=== PATIENT | female | born 1935 | race Caucasian/White ===

== ENCOUNTER 2017-10-18 13:41 | Emergency (ER) | payer MEDICARE, BC ==
[2017-10-18] MEDS ORDERED: ALBUTEROL NEB SOL 2.5MG/3ML 1 VIAL SOL NEB ONE (13:51)
[2017-10-18] MEDS ORDERED: ALBUTEROL NEB SOL 2.5MG/3ML 1 VIAL SOL ONE (13:51)
[2017-10-18 14:12] LABS: CALCIUM 9.8 mg/dl (8.5-10.1)
[2017-10-18] MEDS ORDERED: LEVOFLOXACIN 500 MG TAB PO ONE ×2 (14:20→14:25)
[2017-10-18 14:24] VITALS: TEMP 100.4
[2017-10-18] MEDS ORDERED: LEVOFLOXACIN 500 MG TAB ONE ×2 (14:28)
[2017-10-18 14:39] VITALS: RESP 18
[2017-10-18 15:36] VITALS: O2SAT 96
[2017-10-18 15:37] VITALS: BP 171/70; PULSE 114
== END 2017-10-18 15:10 | DRG 195 ==
LOC: ED 13:41
DX: J18.1 Lobar pneumonia, unspecified organism (principal)
CPT/HCPCS: 36415; 71045; 80048; 87040; 87205; 93005; 99283; 99284; J7603; A9270-GY

== ENCOUNTER 2018-05-23 11:36 | Inpatient (IN) | payer BC, OTHER ==
[2018-05-23] MEDS ORDERED: ALBUTEROL/IPRATROPIUM 1 VIAL SOL INH ONE (11:51)
[2018-05-23] MEDS ORDERED: MECLIZINE HYDROCHLORIDE 12.5 MG TAB PO ONE (11:51)
[2018-05-23] MEDS ORDERED: MECLIZINE HYDROCHLORIDE 12.5 MG TAB ONE (12:15)
[2018-05-23] MEDS ORDERED: ALBUTEROL/IPRATROPIUM 1 VIAL SOL ONE (12:16)
[2018-05-23 12:28] LABS: CARBON DIOXIDE 25.8 mEq/L (21-32); CREATININE 1.39 mg/dl (0.60-1.00); POTASSIUM 3.6 mMol/L (3.5-5.1)
[2018-05-23] MEDS ORDERED: SODIUM CHLORIDE 0.9% 1000 ML SOL IV SCH ×2 (12:30→14:15)
[2018-05-23 12:35] LABS: HEMATOCRIT 42 % (35-47); HEMOGLOBIN 13.5 gm/dl (12.0-15.5); MEAN CORPUSCULAR HEMOGLOBIN 29.6 pg (27.0-32.0); MEAN CORPUSCULAR HGB CONC 31.9 gm/dl (32.0-36.0); MEAN CORPUSCULAR VOLUME 93 fL (81-99)
[2018-05-23 12:51] LABS: BAND NEUTROPHILS % (MANUAL) 16 %; BASOPHILS % (MANUAL) 0 % (0-3); EOSINOPHILS % (MANUAL) 0 % (0-9); LYMPHOCYTES % (MANUAL) 16 % (10-50); MONOCYTES % (MANUAL) 9 % (0-12); NEUTROPHILS % (MANUAL) 59 % (37-80)
[2018-05-23 12:52] LABS: NORMAL RBCS PRESENT
[2018-05-23] MEDS ORDERED: ALBUTEROL NEB SOL 2.5MG/3ML 1 VIAL SOL NEB PRN (13:58)
[2018-05-23] MEDS ORDERED: CEFTRIAXONE 1 GM (PREMIX) 1 GM/50 ML SOL IV SCH (14:00)
[2018-05-23] MEDS ORDERED: ALUMINUM/MAGNESIUM 30 ML SUS PO PRN (14:03)
[2018-05-23] MEDS ORDERED: MENTHOL PO SCH (14:15)
[2018-05-23] MEDS ORDERED: BENZOCAINE PO SCH (14:15)
[2018-05-23] MEDS: ALBUTEROL/IPRATROPIUM 1 VIAL SOL INH SCH ×2 (14:43→20:11)
[2018-05-23] MEDS ORDERED: CEFTRIAXONE 1 GM PDS ONE (14:49)
[2018-05-23] MEDS: ACETAMINOPHEN 500 MG 500 MG TAB PO PRN (15:05)
[2018-05-23] MEDS ORDERED: BENZOCAINE PO PRN (15:13)
[2018-05-23] MEDS ORDERED: MENTHOL PO PRN (15:13)
[2018-05-23] MEDS ORDERED: AZITHROMYCIN 500 MG PDS IV ONE (15:27)
[2018-05-23] MEDS ORDERED: SODIUM CHLORIDE 0.9% 250 ML 250 ML IV ONE (15:27)
[2018-05-23] MEDS: ENOXAPARIN 40 MG SOL SC SCH (15:35)
[2018-05-23] MEDS: AZITHROMYCIN 500 MG PDS 500 MG in SODIUM CHLORIDE 0.9% 250 ML 250 ML IV SCH (15:35)
[2018-05-23] MEDS: PEG-400/PROPYLENE GLYCOL 1 DROP SOL EACHEYE SCH ×2 (16:50→20:11)
[2018-05-23] MEDS: ACETAMINOPHEN 325 MG PO SCH (20:09)
[2018-05-23] MEDS: ASCORBIC ACID/COPPER/VITAMIN SGL PO SCH (20:10)
[2018-05-23] MEDS: CHOLECALCIFEROL 1,000 IU TAB PO SCH (20:11)
[2018-05-23] MEDS ORDERED: FUROSEMIDE 40 MG SOL IV ONE (20:24)
[2018-05-23] MEDS ORDERED: NUTRITIONAL SUPPLEMENT PO SCH (21:00)
[2018-05-24] MEDS: ALBUTEROL/IPRATROPIUM 1 VIAL SOL INH SCH ×5 (01:16→23:49)
[2018-05-24] MEDS: ACETAMINOPHEN 500 MG 500 MG TAB PO PRN (01:20)
[2018-05-24 07:20] LABS: HEMATOCRIT 41 % (35-47); HEMOGLOBIN 13.5 gm/dl (12.0-15.5); MEAN CORPUSCULAR HEMOGLOBIN 30.5 pg (27.0-32.0); MEAN CORPUSCULAR HGB CONC 33.1 gm/dl (32.0-36.0); MEAN CORPUSCULAR VOLUME 92 fL (81-99)
[2018-05-24 07:29] LABS: CALCIUM 9.6 mg/dl (8.5-10.1); CARBON DIOXIDE 25.6 mEq/L (21-32); CREATININE 1.06 mg/dl (0.60-1.00); POTASSIUM 3.6 mMol/L (3.5-5.1)
[2018-05-24 08:06] LABS: BAND NEUTROPHILS % (MANUAL) 5 %; LYMPHOCYTES % (MANUAL) 13 % (10-50); NEUTROPHILS % (MANUAL) 78 % (37-80)
[2018-05-24 08:07] LABS: BASOPHILS % (MANUAL) 1 % (0-3); EOSINOPHILS % (MANUAL) 0 % (0-9); MONOCYTES % (MANUAL) 3 % (0-12); NORMAL RBCS NORMAL RBCS
[2018-05-24] MEDS ORDERED: LISINOPRIL 5 MG TAB PO SCH (09:00)
[2018-05-24] MEDS ORDERED: FUROSEMIDE 20 MG TAB PO SCH (09:00)
[2018-05-24] MEDS: ASCORBIC ACID/COPPER/VITAMIN SGL PO SCH (09:13)
[2018-05-24] MEDS: CHOLECALCIFEROL 1,000 IU TAB PO SCH (09:13)
[2018-05-24] MEDS: PEG-400/PROPYLENE GLYCOL 1 DROP SOL EACHEYE SCH ×4 (09:13→20:50)
[2018-05-24] MEDS: ENOXAPARIN 40 MG SOL SC SCH (09:13)
[2018-05-24] MEDS: ACETAMINOPHEN 325 MG PO SCH ×3 (09:13→20:50)
[2018-05-24] MEDS: AZITHROMYCIN 250 MG TAB PO SCH (14:41)
[2018-05-24] MEDS: AZITHROMYCIN 500 MG PDS 500 MG in SODIUM CHLORIDE 0.9% 250 ML 250 ML IV SCH (23:26)
[2018-05-24] MEDS ORDERED: FUROSEMIDE 40 MG SOL IV ONE (23:37)
[2018-05-25] MEDS ORDERED: SOLUMEDROL 125 MG/2 ML 125 MG/2 ML PDS IV ONE (01:22)
[2018-05-25] MEDS: ALBUTEROL/IPRATROPIUM 1 VIAL SOL INH SCH ×2 (01:54→11:18)
[2018-05-25] MEDS ORDERED: DILTIAZEM 5 MG/ML SOL IV ONE ×4 (06:33→07:34)
[2018-05-25] MEDS ORDERED: DILTIAZEM 5 MG/ML 125 MG in SODIUM CHLORIDE 0.9% 100 ML 100 ML IV SCH (07:15)
[2018-05-25 07:41] LABS: CALCIUM 10.1 mg/dl (8.5-10.1); CREATININE 1.15 mg/dl (0.60-1.00); POTASSIUM 3.8 mMol/L (3.5-5.1)
[2018-05-25 07:45] LABS: CARBON DIOXIDE 25.9 mEq/L (21-32)
[2018-05-25] MEDS ORDERED: PREDNISONE 20 MG TAB PO SCH (09:00)
[2018-05-25] MEDS: ENOXAPARIN 40 MG SOL SC SCH (09:48)
[2018-05-25] MEDS: PEG-400/PROPYLENE GLYCOL 1 DROP SOL EACHEYE SCH ×4 (10:15→21:26)
[2018-05-25] MEDS: ACETAMINOPHEN 325 MG PO SCH ×3 (10:16→21:25)
[2018-05-25] MEDS: AZITHROMYCIN 250 MG TAB PO SCH (15:42)
[2018-05-25] MEDS: ACETAMINOPHEN 500 MG 500 MG TAB PO PRN (17:09)
[2018-05-26] MEDS: ACETAMINOPHEN 500 MG 500 MG TAB PO PRN (04:10)
[2018-05-26 07:14] LABS: CALCIUM 10.3 mg/dl (8.5-10.1); CREATININE 1.06 mg/dl (0.60-1.00)
[2018-05-26 07:20] LABS: CARBON DIOXIDE 29.8 mEq/L (21-32); POTASSIUM 4.9 mMol/L (3.5-5.1)
[2018-05-26] MEDS: PEG-400/PROPYLENE GLYCOL 1 DROP SOL EACHEYE SCH ×4 (08:58→20:59)
[2018-05-26] MEDS: ACETAMINOPHEN 325 MG PO SCH ×3 (08:58→20:50)
[2018-05-26] MEDS ORDERED: AZITHROMYCIN 250 MG TAB PO SCH (10:00)
[2018-05-26] MEDS: AZITHROMYCIN 250 MG TAB PO SCH (11:04)
[2018-05-26] MEDS: ALBUTEROL/IPRATROPIUM 1 VIAL SOL INH SCH ×2 (17:11→23:52)
[2018-05-27] MEDS: ALBUTEROL/IPRATROPIUM 1 VIAL SOL INH SCH (04:46)
[2018-05-27] MEDS: PEG-400/PROPYLENE GLYCOL 1 DROP SOL EACHEYE SCH (08:40)
[2018-05-27] MEDS: ACETAMINOPHEN 325 MG PO SCH (08:41)
[2018-05-27 08:43] VITALS: BP 134/70; PULSE 89; RESP 20; TEMP 97.4; O2SAT 92
== END 2018-05-27 10:25 | DRG 204 ==
LOC: ED 11:36 → ACUTE CARE 13:43 → UNDOADMIN 13:43 → ACUTE CARE 13:50
PROVIDERS: ADMIT Emergency Medicine; ATTEND Emergency Medicine
DX: J18.9 Pneumonia, unspecified organism (principal); E86.0 Dehydration; W19.XXXA Unspecified fall, initial encounter; R06.02 Shortness of breath; R06.2 Wheezing; I10 Essential (primary) hypertension; F03.90 Unspecified dementia, unspecified severity, without behavioral disturbance, psychotic disturbance, mood disturbance, and anxiety; S49.91XA Unspecified injury of right shoulder and upper arm, initial encounter; R00.0 Tachycardia, unspecified; I48.91 Unspecified atrial fibrillation; M25.511 Pain in right shoulder
CPT/HCPCS: 36415; 71045; 73030; 80048; 82550; 85007; 85027; 87040; 87077; 87186; 87205; 93005; 93012; 94150; 94640; 94664; 96365; 99070; 99222; 99285; J0456; J0696; J1650; J1940; J2930; J7613; A9270-GY; J3490

== ENCOUNTER 2019-04-01 15:52 | Emergency (ER) | payer OTHER ==
[2019-04-01 16:30] LABS: HEMATOCRIT 41 % (35-47); HEMOGLOBIN 13.2 gm/dl (12.0-15.5); MEAN CORPUSCULAR HEMOGLOBIN 31.2 pg (27.0-32.0); MEAN CORPUSCULAR HGB CONC 32.4 gm/dl (32.0-36.0); MEAN CORPUSCULAR VOLUME 97 fL (81-99)
[2019-04-01 16:44] LABS: ALBUMIN 3.2 gm/dl (3.4-5.0); BILIRUBIN,TOTAL 0.4 mg/dl (0.2-1.0); TOTAL PROTEIN 6.4 gm/dl (6.4-8.2)
[2019-04-01 16:48] VITALS: TEMP 97
[2019-04-01 17:02] LABS: CALCIUM 9.1 mg/dl (8.5-10.1); CARBON DIOXIDE 27.7 mEq/L (21-32); CREATININE 0.9 mg/dl (0.60-1.00)
[2019-04-01 17:08] LABS: NEUTROPHILS % (MANUAL) 57 % (37-80)
[2019-04-01 17:09] LABS: BAND NEUTROPHILS % (MANUAL) 0 %; BASOPHILS % (MANUAL) 0 % (0-3); EOSINOPHILS % (MANUAL) 0 % (0-9); MONOCYTES % (MANUAL) 5 % (0-12); NORMAL RBCS PRESENT
[2019-04-01 17:10] LABS: LYMPHOCYTES % (MANUAL) 38 % (10-50)
[2019-04-01 17:21] LABS: APPEARANCE,URINE Cloudy; BILIRUBIN,URINE NEGATIVE (NEGATIVE); COLOR,URINE Yellow; GLUCOSE, URINE (UA) NEGATIVE (NEGATIVE); KETONES,URINE NEGATIVE (NEGATIVE); LEUKOCYTE ESTERASE ,URINE TRACE (NEGATIVE); NITRATE,URINE NEGATIVE (NEGATIVE); OCCULT BLOOD,URINE NEGATIVE (NEG-TRACE); PH,URINE 6.5; UROBILINOGEN,URINE 0.2 (0.2-1.0 EU)
[2019-04-01 17:35] LABS: BACTERIA 2+ (< 1+); CRYSTALS NEGATIVE (0-3 AVE/HPF); RBC,URINE NEG (0-3AV/HPF)
[2019-04-01 18:21] VITALS: BP 128/75; PULSE 84; RESP 20; O2SAT 98
== END 2019-04-01 18:13 | DRG 914 ==
LOC: ED 15:52
DX: S09.90XA Unspecified injury of head, initial encounter (principal); S01.01XA Laceration without foreign body of scalp, initial encounter; W01.190A Fall on same level from slipping, tripping and stumbling with subsequent striking against furniture, initial encounter
CPT/HCPCS: 12002; 36415; 70450; 80053; 81001; 85007; 85027; 87088; 99282; 99285

== ENCOUNTER 2019-04-08 20:22 | Emergency (ER) | payer OTHER ==
[2019-04-08 20:53] VITALS: RESP 20; TEMP 97.4
[2019-04-09 01:08] VITALS: BP 160/84; PULSE 92; O2SAT 99
== END 2019-04-09 00:10 | DRG 556 ==
LOC: ED 20:22
DX: M25.572 Pain in left ankle and joints of left foot (principal); M25.571 Pain in right ankle and joints of right foot; E27.9 Disorder of adrenal gland, unspecified; S92.342A Displaced fracture of fourth metatarsal bone, left foot, initial encounter for closed fracture; S92.352A Displaced fracture of fifth metatarsal bone, left foot, initial encounter for closed fracture; W18.30XA Fall on same level, unspecified, initial encounter
CPT/HCPCS: 72131; 73610; 73630; 99283; L4360

== ENCOUNTER 2019-04-11 00:20 | Emergency (ER) | payer OTHER ==
[2019-04-11 01:00] VITALS: BP 164/75; PULSE 86; RESP 20; TEMP 97.1; O2SAT 97
[2019-04-11 08:13] LABS: APPEARANCE,URINE Slightly Cloudy; BILIRUBIN,URINE NEGATIVE (NEGATIVE); COLOR,URINE Yellow; GLUCOSE, URINE (UA) NEGATIVE (NEGATIVE); KETONES,URINE TRACE (NEGATIVE); LEUKOCYTE ESTERASE ,URINE NEGATIVE (NEGATIVE); NITRATE,URINE NEGATIVE (NEGATIVE); OCCULT BLOOD,URINE NEGATIVE (NEG-TRACE); UROBILINOGEN,URINE 0.2 (0.2-1.0 EU)
[2019-04-11 08:26] LABS: CRYSTALS I+ AMORPH URATES (0-3 AVE/HPF); RBC,URINE NEG (0-3AV/HPF); WBC,URINE 0-2 (0-5AV/HPF)
[2019-04-11 08:27] LABS: BACTERIA 3+ (< 1+)
== END 2019-04-11 01:20 | DRG 696 ==
LOC: ED 00:20
DX: R33.9 Retention of urine, unspecified (principal); N18.4 Chronic kidney disease, stage 4 (severe); T83.091A Other mechanical complication of indwelling urethral catheter, initial encounter
CPT/HCPCS: 81001; 87088; 87205; 99282